=== PATIENT | female | born 2000 | race Caucasian/White ===

== ENCOUNTER 2022-05-26 15:05 | Emergency (ER) | payer MEDICAID ==
[~2022-05-26] VITALS: Ht 163.8 cm; Wt 58.2 kg
[2022-05-26 15:07] VITALS: BP 98/66
[2022-05-26] MEDS ORDERED: NORE-89 PO (15:17)
[2022-05-26 15:30] LABS: COVID AG,FIA SOURCE NASAL SWAB
[2022-05-26] MEDS ORDERED: IBUPROFEN 600 MG TABLET PO ONE (15:30)
[2022-05-26] MEDS ORDERED: ACETAMINOPHEN 500 MG TABLET PO ONE (15:30)
[2022-05-26] MEDS ORDERED: LIDOCAINE 2% VISCOUS 15 ML SOLUTION UDCUP PO ONE (15:30)
[2022-05-26] MEDS ORDERED: GuaiFENesin/D-METHORPHAN [SUGAR-FREE] 200-20MG/10 ML SYRUP UDCUP PO ONE (15:30)
[2022-05-26 15:49] LABS: INFLUENZA TYPE B NEGATIVE FOR TYPE B (NEGATIVE)
[2022-05-26 15:54] LABS: INFLUENZA TYPE A POSITIVE FOR TYPE A (NEGATIVE)
[2022-05-26] MEDS ORDERED: GUAIFDM PO (16:03)
[2022-05-26] MEDS ORDERED: IBUP-1554 PO (16:03)
[2022-05-26] MEDS ORDERED: ACET-2080 PO (16:03)
[2022-05-26] MEDS ORDERED: OSEL75 PO (16:23)
== END 2022-05-26 16:39 | disposition home or self-care (01) ==
LOC: EMS 15:15
DX: J10.1 Influenza due to other identified influenza virus with other respiratory manifestations (principal); Z20.822 Contact with and (suspected) exposure to COVID-19; F12.90 Cannabis use, unspecified, uncomplicated
CPT/HCPCS: 87804; 99284; Z7502; Z7610

== ENCOUNTER 2022-06-05 21:44 | Emergency (ER) | payer MEDICAID ==
[~2022-06-05] VITALS: Ht 162.6 cm; Wt 56.8 kg
[~2022-06-05 21:44] MED LIST: ACET-2080 PO; GUAIFDM PO; IBUP-1554 PO; NORE-89 PO; OSEL75 PO
[2022-06-06] MEDS ORDERED: SODIUM CHLORIDE 0.9% 1,000 ML IV ONE (00:45)
[2022-06-06 00:56] LABS: BASOPHILS % (AUTO) 0.5 % (0.0-2.0); EOSINOPHILS % (AUTO) 5.9 % (1.0-6.0); HEMATOCRIT 38.2 % (36-46); HEMOGLOBIN 12.6 g/dL (12.0-16.0); LYMPHOCYTES # (AUTO) 2.9 K/uL (1.0-4.8); MEAN CORPUSCULAR HEMOGLOBIN 28.3 pg (26.0-34.0); MEAN CORPUSCULAR VOLUME 86 fL (80-100); NEUTROPHILS # (AUTO) 7.5 K/uL (1.8-7.7); NEUTROPHILS % (AUTO) 61.6 % (40.0-70.0); PLATELET COUNT (AUTO) 394 K/uL (150-450); RED BLOOD CELL COUNT(AUTO) 4.45 MIL/uL (4.00-5.20); RED CELL DISTRIBUTION WIDTH 13.6 % (11.5-14.5)
[2022-06-06 01:03] LABS: ANION GAP 5 mmol/L (8-16); CALCIUM, TOTAL 9.6 mg/dL (8.8-10.5); CARBON DIOXIDE 30 mmol/L (22-29); CHLORIDE 103 mmol/L (98-107); CREATININE 0.79 mg/dL (0.60-1.30); GLOMERULAR FILTR. RATE CALC > 60 mL/min (>60); GLUCOSE,RANDOM 93 mg/dL (70-110); POTASSIUM 4.9 mmol/L (3.5-5.1); SODIUM SERUM 138 mmol/L (136-145); UREA NITROGEN, BLOOD 10 mg/dL (7-18)
[2022-06-06 01:08] LABS: ALANINE AMINOTRANSFERASE 15 U/L (12-78); ALBUMIN 3.7 g/dL (3.4-5.0); ALKALINE PHOSPHATASE 69 U/L (46-116); ASPARTATE AMINOTRANSFERASE 17 U/L (15-37); BILIRUBIN,TOTAL 0.3 mg/dL (0.1-1.0); TOTAL PROTEIN, SERUM 8.1 g/dL (6.4-8.2)
[2022-06-06] MEDS ORDERED: AZITHROMYCIN 500 MG TABLET PO ONE (02:30)
[2022-06-06] MEDS ORDERED: CefTRIAXone 1 GM/DEXTROSE 50 ML IV ONE (02:30)
[2022-06-06] MEDS ORDERED: AZIT250T9 PO (02:33)
[2022-06-06 03:22] VITALS: BP 104/58
== END 2022-06-06 03:30 | disposition home or self-care (01) ==
LOC: EMS 21:45
DX: J13 Pneumonia due to Streptococcus pneumoniae (principal); F12.90 Cannabis use, unspecified, uncomplicated
CPT/HCPCS: 99284; 80053; 85025; 36415; 96365; 71046; 96361; J0696; Q9967